=== PATIENT | male | born 1970 ===

== ENCOUNTER 2018-11-10 22:47 | Emergency (ER) | payer SELFPAY ==
[2018-11-10 22:49] VITALS: TEMP 97.9
[2018-11-10 22:50] VITALS: BMI 20.7
[2018-11-10] MEDS ORDERED: Sodium Chloride 0.9% 1,000 ML IV STA (23:46)
[2018-11-11 00:09] LABS: BASO # 0.1 K/uL (0.0-0.2); BASO % 1.2 % (0.0-2.0); EOS # 0.2 K/uL (0.0-0.7); EOS % 3.7 % (0.0-4.0); HEMOGLOBIN 15.2 g/dL (12.0-18.0); LYMPH # 2.2 K/uL (1.0-4.3); LYMPH % 33.5 % (20.0-40.0); MEAN CELL VOLUME 94.8 fl (80.0-94.0); MEAN CORPUSCULAR HEMOGLOBIN 32.1 pg (27.0-31.0); MEAN CORPUSCULAR HGB CONC 33.9 g/dL (33.0-37.0); MEAN PLATELET VOLUME 7.7 fl (7.2-11.7); MONO # 0.6 K/uL (0.0-0.8); MONO % 9.3 % (0.0-10.0); NEUT # 3.5 K/uL (1.8-7.0); NEUT % 52.3 % (50.0-75.0); NRBC % 0.1 % (0.0-0.0); RBC 4.73 Mil/uL (4.40-5.90); RED CELL DISTRIBUTION WIDTH 12.5 % (11.5-14.5); WHITE BLOOD COUNT 6.7 K/uL (4.8-10.8)
[2018-11-11 00:17] LABS: ALB/GLOB RATIO 1.5 (1.0-2.1); ALBUMIN 4.5 g/dL (3.5-5.0); ALT/SGPT 27 U/L (21-72); AST/SGOT 25 U/L (17-59); BLOOD UREA NITROGEN 8 mg/dl (9-20); CALCIUM 9.9 mg/dL (8.4-10.2); GFR NON-AFRICAN AMERICAN > 60
--- NOTE | 2018-11-11 00:24 | ED PDOC ---
Syncope/Near Syncope/Dizziness Time Seen by Provider: 11/10/18 23:24 Chief Complaint (Nursing): Dizziness/Lightheaded Chief Complaint (Provider): Syncope History Per: Patient History/Exam Limitations: no limitations Onset/Duration Of Symptoms: Hrs (x3) Additional Complaint(s): 47 year old male presents to the ER for syncope. Patient reports he felt very lightheaded around 21:30 today while trying to fumigate his home with household products because of bugs. Patient reports he has been doing this intermittently for the last [address] [facility] won't send a professional. Patient also states he drank 4 Coors Light beers prior to that. He lied down after and reports that is the last thing he remembered. He knows he called 911 because his phone told him and he ended up in the hospital. Patient does not remember calling 911, EMS picking him up, or being brought to the ER. The last thing he remembers is calling a friend at 21:30 that he felt lightheaded. Patient reports this has happened before. He indicates having a headache but is unsure why. He does not recall any trauma. PMD: none Past Medical History Reviewed: Historical Data, Nursing Documentation, Vital Signs Vital Signs: Last Vital Signs Temp 97.9 F 11/10/18 22:48 Pulse 102 H 11/10/18 22:48 Resp 16 11/10/18 22:48 BP 117/64 11/10/18 22:48 Pulse Ox 96 11/10/18 22:48 - Medical History PMH: Arthritis, Back Problems, Depression Denies: Chronic Kidney Disease - Surgical History Surgical History: No Surg Hx - Family History Family History: States: No Known Family Hx - Social History Current smoker - smoking cessation education provided: Yes Alcohol: Social Drugs: Denies, Cannabis (May have contact marijuana because neighbors moke a lot.) - Home Medications Home Medications: Ambulatory Orders Medication Instructions Recorded oxyCODONE/Acetaminophen [Percocet 5 - 325 mg PO Q4 PRN 07/12/16 5/325 mg Tab] - Allergies Allergies/Adverse Reactions: Allergies Allergy/AdvReac Type Severity Reaction Status Date / Time No Known Allergies Allergy Verified 11/10/18 22:49 Review of Systems ROS Statement: Except As Marked, All Systems Reviewed And Found Negative (as per HPI) Neurological: Positive for: Headache, Other (Syncope) Physical Exam - Reviewed Nursing Documentation Reviewed: Yes Vital Signs Reviewed: Yes - Physical Exam Appears: Positive for: No Acute Distress Head Exam: Positive for: ATRAUMATIC, NORMOCEPHALIC Skin: Positive for: Warm, Dry Eye Exam: Positive for: EOMI, PERRL ENT: Negative for: Pharyngeal Erythema Neck: Positive for: Painless ROM, Supple Cardiovascular/Chest: Positive for: Regular Rate, Rhythm Respiratory: Positive for: Normal Breath Sounds. Negative for: Wheezing, Resp iratory Distress Gastrointestinal/Abdominal: Positive for: Soft Back: Positive for: Normal Inspection. Negative for: Decreased ROM Extremity: Positive for: Normal ROM. Negative for: Deformity Neurological/Psych: Positive for: Alert, Oriented (x3), Mood/Affect (anxious mood and anxious affect), Other (Somewhat poor concentration and mild tangential thought). Negative for: Motor/Sensory Deficits - Laboratory Results Result Diagrams: 11/11/18 00:05 11/11/18 00:05 Lab Results: Total Bilirubin 0.4 mg/dl (0.2-1.3) 11/11/18 00:05 AST 25 U/L (17-59) 11/11/18 00:05 ALT 27 U/L (21-72) 11/11/18 00:05 Alkaline Phosphatase 79 U/L (38-126) 11/11/18 00:05 Total Protein 7.7 G/DL (6.3-8.2) 11/11/18 00:05 Albumin 4.5 g/dL (3.5-5.0) 11/11/18 00:05 Globulin 3.1 gm/dL (2.2-3.9) 11/11/18 00:05 Albumin/Globulin Ratio 1.5 (1.0-2.1) 11/11/18 00:05 - ECG O2 Sat by Pulse Oximetry: 96 (RA) Pulse Ox Interpretation: Normal Medical Decision Making Medical Decision Making: Initial Impression: Syncope and alcohol intoxication Initial Plan: --Type and screen stat --CT head --ECG --Alcohol serum stat --CMP --Urine drug screen --Magnesium stat --Phosphorous stat --TSH stat --Troponin stat --ED urine dipstick --CBC --Sodium chloride 1000mL IV 00:00 Patient signed out to Dr. Corey. Pending labs and reevaluation. Scribe Attestation: Documented by Jarred Ramirez acting as a scribe for Shannon Driscoll MD. Provider Scribe Attestation: All medical record entries made by the Scribe were at my direction and personally dictated by me. I have reviewed the chart and agree that the record accurately reflects my personal performance of the history, physical exam, medical decision making, and the department course for this patient. I have also personally directed, reviewed, and agree with the discharge instructions and disposition. Disposition - Clinical Impression Clinical Impression: Syncope, Alcohol intoxication - Disposition Disposition: Transfer of Care Disposition Time: 00:00 Condition: STABLE Patient Signed Over To: Jm Nicole
--- NOTE | 2018-11-11 00:40 | ED PDOC ---
- Laboratory Results Result Diagrams: 11/11/18 00:05 11/11/18 00:05 Lab Results: Troponin I < 0.0120 ng/mL (0.00-0.120) 11/11/18 00:05 Total Bilirubin 0.4 mg/dl (0.2-1.3) 11/11/18 00:05 AST 25 U/L (17-59) 11/11/18 00:05 ALT 27 U/L (21-72) 11/11/18 00:05 Alkaline Phosphatase 79 U/L (38-126) 11/11/18 00:05 Total Protein 7.7 G/DL (6.3-8.2) 11/11/18 00:05 Albumin 4.5 g/dL (3.5-5.0) 11/11/18 00:05 Globulin 3.1 gm/dL (2.2-3.9) 11/11/18 00:05 Albumin/Globulin Ratio 1.5 (1.0-2.1) 11/11/18 00:05 - ECG O2 Sat by Pulse Oximetry: 96 (RA) Medical Decision Making Medical Decision Makin:00 Patient signed out to this provider from Dr. Driscoll. Pending workup and reevaluation. 04:28 Patient is stable for discharge. Patient is awake, alert, and oriented with stable vitals. Scribe Attestation: Documented by Jarred Ramirez acting as a scribe for Jm Nicole MD. Provider Scribe Attestation: All medical record entries made by the Scribe were at my direction and personally dictated by me. I have reviewed the chart and agree that the record accurately reflects my personal performance of the history, physical exam, medical decision making, and the department course for this patient. I have also personally directed, reviewed, and agree with the discharge instructions and disposition. Disposition - Clinical Impression Clinical Impression: Syncope, Alcohol intoxication - POA Present On Arrival: None - Disposition Referrals: Noel Smith MD [Family Provider] - Disposition: Routine/Home Disposition Time: 05:00 Condition: IMPROVED Instructions: Syncope (Fainting), Alcohol Use - When Is Drinking a Problem? Forms: [facility] (Polish)
[2018-11-11 01:46] LABS: BARBITURATES, UR NEGATIVE (NEGATIVE); BENZODIAZEPINES, UR NEGATIVE (NEGATIVE); OPIATES, UR NEGATIVE (NEGATIVE); PHENCYCLIDINE, UR NEGATIVE (NEGATIVE)
[2018-11-11 05:00] VITALS: BP 132/78; PULSE 87; RESP 17
[2018-11-11 06:23] VITALS: O2SAT 96
--- NOTE | 2018-11-11 11:39 | CT ---
Date of service: 11/11/2018 PROCEDURE: CT HEAD WITHOUT CONTRAST. HISTORY: headache syncope COMPARISON: CT head dated 05/12/2015 TECHNIQUE: Axial computed tomography images were obtained through the head/brain without intravenous contrast. Radiation dose: Total exam DLP = 788.76 mGy-cm. This CT exam was performed using one or more of the following dose reduction techniques: Automated exposure control, adjustment of the mA and/or kV according to patient size, and/or use of iterative reconstruction technique. FINDINGS: HEMORRHAGE: No intracranial hemorrhage. BRAIN: No mass effect or edema. Mild atrophy. Mild chronic microvascular ischemic changes. VENTRICLES: Unremarkable. No hydrocephalus. CALVARIUM: Unremarkable. PARANASAL SINUSES: Unremarkable as visualized. No significant inflammatory changes. MASTOID AIR CELLS: Unremarkable as visualized. No inflammatory changes. OTHER FINDINGS: None. IMPRESSION: No acute intracranial pathology. Age-related changes. No significant interval change.
--- NOTE | 2018-11-11 21:20 | CARD ---
APPROVED REPORT Date of service: 11/11/2018 EKG Measurement Heart [id number] <Conclusion> Normal sinus rhythm Voltage criteria for left ventricular hypertrophy Abnormal ECG
== END 2018-11-11 04:59 | disposition home or self-care (01) ==
LOC: H.ER 22:47
DX: R55 Syncope and collapse (principal); F10.129 Alcohol abuse with intoxication, unspecified; F17.200 Nicotine dependence, unspecified, uncomplicated; Z86.59 Personal history of other mental and behavioral disorders; Y90.6 Blood alcohol level of 120-199 mg/100 ml
CPT/HCPCS: 70450; 80053; 83735; 84100; 84443; 84484; 85025; 86850; 86900; 93005; 96360; 99284; G0480; J7030